=== PATIENT | female | born 1970 | race Caucasian/White ===

== ENCOUNTER 2019-11-30 16:38 | Inpatient (IN) | payer MEDICAID ==
[~2019-11-30] VITALS: Ht 160 cm; Wt 49.4 kg
[2019-11-30] MEDS ORDERED: IV NORMAL SALINE 1000 ML BAG IV ONE (17:00)
[2019-11-30] MEDS ORDERED: FAMOTIDINE. 20 MG/2 ML VIAL IV ONE ×2 (17:00→17:33)
--- NOTE | 2019-11-30 17:00 | NUR ---
PT IS IN ROOM #2A. DR BARRIOS EVALUATED THE PT.
[2019-11-30] MEDS ORDERED: HUM10VIA3 SQ (17:20)
[2019-11-30] MEDS ORDERED: LISI-603 PO (17:20)
[2019-11-30 17:37] LABS: BASOPHILS % (AUTO) 0.7 % (0.0-2.0); EOSINOPHILS % (AUTO) 0.7 % (0.0-7.0); HEMOGLOBIN 11.2 g/dL (10.9-14.3); LYMPHOCYTES # (AUTO) 1.9 K/uL (20.0-40.0); LYMPHOCYTES % (AUTO) 47.7 % (20.5-51.5); MEAN CORPUSCULAR HEMOGLOBIN 26.8 uug (24.7-32.8); MEAN CORPUSCULAR HGB CONC 31 g/dL (32.3-35.6); MEAN CORPUSCULAR VOLUME 86.5 fL (75.5-95.3); MONOCYTES # (AUTO) 0.4 K/uL (2.0-10.0); MONOCYTES % (AUTO) 9.5 % (0.0-11.0); NEUTROPHILS # (AUTO) 1.6 K/uL (1.8-8.9); NEUTROPHILS % (AUTO) 41.4 % (38.5-71.5); PLATELET COUNT (AUTO) 151 K/uL (179-408); RED BLOOD CELL COUNT(AUTO) 4.16 MIL/uL (3.63-4.92); WHITE BLOOD COUNT (AUTO) 3.9 K/uL (3.8-11.8)
[2019-11-30 17:58] LABS: BILIRUBIN,DIRECT 0.2 mg/dL (0.0-0.2); BILIRUBIN,TOTAL 0.5 mg/dL (0.2-1.0); CREATININE 0.7 mg/dL (0.6-1.3); POTASSIUM 3.4 mmol/L (3.5-5.1); TOTAL PROTEIN, SERUM 8.1 g/dL (6.4-8.2)
[2019-11-30] MEDS ORDERED: SWABABLE VALVE TRANSFER SET EA MC ONE (18:18)
[2019-11-30] MEDS ORDERED: IV NORMAL SALINE 250 ML IV ONE (18:18)
[2019-11-30] MEDS ORDERED: IOHEXOL 350 100 ML INFUS..BTL ONE (18:18)
[2019-11-30] MEDS ORDERED: ONDANSETRON 4 MG/2 ML VIAL ONE (18:35)
[2019-11-30] MEDS ORDERED: ONDANSETRON 4 MG/2 ML VIAL IV ONE (18:45)
--- NOTE | 2019-11-30 18:56 | NUR ---
REPORT WAS GIVEN TO [employer] CONSULTANT.
--- NOTE | 2019-11-30 19:27 | NUR ---
OK TO ADMIT TO TELE [facility] CALLED (KAYLA) CALL FOR BED DONE DX CHEST PAIN
--- NOTE | 2019-11-30 19:42 | NUR ---
WAITING CALL BACK FR CHARGE NURSE (SHERI)
--- NOTE | 2019-11-30 20:02 | NUR ---
BRIAN PENA ON THE PHONE WITH GAMA HERNANDEZ
--- NOTE | 2019-11-30 20:27 | NUR ---
HAND OFF AND SBAR GIVEN TO DOC ROSA OK TO ADMIT TO TELE RM 316 DX CHEST PAIN UNDER KERZUMA
--- NOTE | 2019-11-30 20:59 | NUR ---
TRANSPORTED TO ROOM VIA [facility] BY SEDA W/ BELONGINGS LIST SIGNED AND ACCOUNTED FOR
[2019-11-30 21:00] VITALS: BP 114/66
[2019-11-30] MEDS ORDERED: ZOLPIDEM 5 MG TABLET PO PRN (22:30)
[2019-11-30] MEDS ORDERED: ONDANSETRON 4 MG/2 ML VIAL IV PRN (22:30)
[2019-11-30] MEDS ORDERED: ACETAMINOPHEN 325 MG TABLET PO PRN (22:30)
[2019-11-30] MEDS ORDERED: MAGNESIUM HYDROXIDE 30 ML LIQUID UDC PO PRN (22:30)
[2019-11-30] MEDS ORDERED: HYDROCODONE/APAP 5-325MG TABLET PO PRN (22:30)
[2019-11-30] MEDS ORDERED: Z GUARD REMEDY PASTE 57 GM TUBE TOP PRN (22:30)
[2019-11-30] MEDS: LORAZEPAM 2 MG/1 ML VIAL IV PRN (23:00)
[2019-11-30] MEDS ORDERED: DEXTROSE 50% 50 ML DISP.SYRIN IV PRN (23:00)
[2019-11-30] MEDS: IV D5 1/2 NS 1000 ML 1,000 ML IV PRN (23:00)
--- NOTE | 2019-11-30 23:00 | NUR ---
Dr. gallegos contacted for patient DM-I diagnosis. orders received for patient to have mild sliding scale ACHS.
[2019-11-30] MEDS: BLOOD SUGAR DIAGNOSTIC 1 EACH STRIP VI SCH (23:11)
[2019-11-30] MEDS: INSULIN REGULAR, HUMAN 300 UNIT/3 ML VIAL SQ PRN (23:25)
[2019-12-01] VITALS: BP 125/78
[2019-12-01 05:00] VITALS: BP 138/88
--- NOTE | 2019-12-01 05:41 | NUR ---
patient received from ER. no signs of acute distress and v/s stable throughout shift. safety and comfort measures provided. bed in lowest position, side rails upx2, bed alarm on. all medications administered. Ativan x1 administered for alcohol withdrawal. Ambien administered for insomnia. will continue to monitor and endorse care accordingly.
[2019-12-01] MEDS: PANTOPRAZOLE SODIUM 40 MG TABLET.DR PO SCH (06:02)
[2019-12-01] MEDS: BLOOD SUGAR DIAGNOSTIC 1 EACH STRIP VI SCH ×4 (06:30→20:35)
[2019-12-01 06:33] LABS: BASOPHILS % (AUTO) 0.9 % (0.0-2.0); EOSINOPHILS # (AUTO) 0.1 K/uL (0.0-0.7); EOSINOPHILS % (AUTO) 1.7 % (0.0-7.0); HEMATOCRIT 35.6 % (31.2-41.9); HEMOGLOBIN 11.1 g/dL (10.9-14.3); LYMPHOCYTES # (AUTO) 1.2 K/uL (20.0-40.0); LYMPHOCYTES % (AUTO) 41.4 % (20.5-51.5); MEAN CORPUSCULAR HEMOGLOBIN 26.6 uug (24.7-32.8); MEAN CORPUSCULAR HGB CONC 31 g/dL (32.3-35.6); MEAN CORPUSCULAR VOLUME 84.9 fL (75.5-95.3); MONOCYTES # (AUTO) 0.6 K/uL (2.0-10.0); MONOCYTES % (AUTO) 18.7 % (0.0-11.0); NEUTROPHILS # (AUTO) 1.1 K/uL (1.8-8.9); NEUTROPHILS % (AUTO) 37.3 % (38.5-71.5); PLATELET COUNT (AUTO) 122 K/uL (179-408); RED BLOOD CELL COUNT(AUTO) 4.19 MIL/uL (3.63-4.92)
[2019-12-01 06:45] LABS: THYROID STIMULATING HORMONE 2.288 mIU/mL (0.358-3.740)
[2019-12-01 06:55] LABS: CREATININE 0.6 mg/dL (0.6-1.3); MAGNESIUM 1.3 mg/dL (1.8-2.4); PHOSPHOROUS 3.2 mg/dL (2.5-4.9); POTASSIUM 3.9 mmol/L (3.5-5.1)
[2019-12-01 06:59] LABS: LYMPHOCYTES % (MANUAL) 42 % (20-40); NEUTROPHILS % (MANUAL) 39 % (42-75)
[2019-12-01 07:00] LABS: EOSINOPHILS % (MANUAL) 2 % (0-8); MONOCYTES % (MANUAL) 17 % (2-10)
--- NOTE | 2019-12-01 08:00 | NUR ---
Received Pt resting in bed. no signs of acute distress or sob noted. safety and comfort measures provided. bed in lowest position, side rails upx2, bed alarm on. Ativan x1 administered for alcohol withdrawal. Pt on telemetry monitoring with sinus rhythm. will continue to monitor pt for safety and comfort.
[2019-12-01] MEDS: LORAZEPAM 2 MG/1 ML VIAL IV PRN ×3 (08:25→23:43)
[2019-12-01] MEDS: INSULIN REGULAR, HUMAN 300 UNIT/3 ML VIAL SQ PRN ×2 (08:30→17:06)
[2019-12-01] MEDS: CHLORDIAZEPOXIDE HCL 25 MG CAPSULE PO SCH ×2 (10:04→17:11)
[2019-12-01] MEDS: FOLIC ACID/VITAMIN B COMP W-C TABLET PO SCH (10:05)
--- NOTE | 2019-12-01 11:32 | NUR ---
SS consultation requested: SW met with this patient today. Patient is 49 year old female. Patient is awake, alert, oriented, receptive to meeting with this SW. Patient was in bed, and had her eyes closed throughout most of the interview. Patient apologized for having her eyes closed, stating "I'm just very tired", however her speech, tone of voice, and responses were all appropriate. Patient stated she was walking to the store yesterday when she started having chest pain and "I was just not feeling well". Patient was then brought in to the ED by paramedics. Patient states she lives with a roommate, Charley, in [place]. Patient's mother Lacy lives in [place] [phone] and patient stated that she has informed her mother of her hospitalization. Patient has a boyfriend, eJan Pierre [phone], who is also aware of patient's hospitalization. Patient reported hx of alcohol use for the past 7 years. Patient reports drinking 1 liter of vodka/day, last use was yesterday morning. Patient denied being in any substance abuse treatment programs in the past, however was receptive to resources on substance abuse treatment programs. Patient denied any hx of drug use. Patient reported hx of suicidal thoughts, but denied hx of attempts or any specific plans. Patient denied current SI. SW offered resources on counseling services, and patient expressed agreement. Per patient's request, information on advance directives were discussed. SW provided patient with informational material on advance directives, and also provided patient with a blank advance directive that she can complete. SW also provided patient with the following resources: Alcohol and Drug Treatment Programs: [facility] Substance Abuse Self-helpline ; [facility] ; [facility] ; [facility] ; [facility] ; [facility] [phone]; [facility] [phone]. Outpatient counseling services: [facility] [phone]; [facility] [phone]; [facility] [phone]; [facility] [phone]; [facility] [phone]; [facility] [phone]; [facility] [phone]. MICHELLE spoke with AZEEM Freitas and informed her of all above SS interventions. No further SS interventions needed at this time, however SW will be available to the patient, if necessary.
[2019-12-01 11:48] VITALS: BP 115/84
[2019-12-01] MEDS: MAGNESIUM SULFATE/D5W 100 ML IV SCH ×4 (14:55→18:32)
[2019-12-01 15:33] VITALS: BP 134/90
[2019-12-01] MEDS: IV D5 1/2 NS 1000 ML 1,000 ML IV PRN (17:14)
--- NOTE | 2019-12-01 17:58 | NUR ---
PT RESTING COMFORTABLY IN BED. NO ACUTE DISTRESS OR SOB NOTED. PT DENIES PAIN AT THIS TIME. BED LOCKED AND IN LOW POSITION. PT IS DIET AND MEDICATION COMPLIANT. PLEASANT AND COOPERATIVE. IVF AND MEDS GIVEN. PT ON TELEMETRY MONITORING SHOWING SINUS RHYTHM. SOCIAL SERVICE HAD CONSULT WITH PATIENT. WILL GIVE REPORT ACCORDINGLY.
[2019-12-01 20:02] VITALS: BP 146/105
--- NOTE | 2019-12-01 20:11 | NUR ---
Dr. Britton contacted for patient BP medication taken daily at home. orders received for Lisinopril 20 mg PO daily and administered one now. will place order and administer.
[2019-12-01] MEDS: LISINOPRIL 20 MG TABLET PO SCH (20:34)
[2019-12-02 00:07] VITALS: BP 128/87
[2019-12-02 04:00] VITALS: BP 126/93
[2019-12-02] MEDS: IV D5 1/2 NS 1000 ML 1,000 ML IV PRN (04:35)
--- NOTE | 2019-12-02 05:28 | NUR ---
patient received lying in bed. no signs of acute distress and v/s stable at all times. safety and comfort measures provided at all times. all medications administered and needs met. ativan administered x1 for c/o of pain. BS stable. no insulin administered during the night. low grade fever noted throughout shift. will continue to monitor and endorse accordingly.
[2019-12-02] MEDS: PANTOPRAZOLE SODIUM 40 MG TABLET.DR PO SCH ×2 (06:07→06:20)
--- NOTE | 2019-12-02 06:20 | NUR ---
patient refused her protonix this morning despite education. wasted. will continue to monitor.
[2019-12-02 06:30] LABS: BASOPHILS % (AUTO) 0.9 % (0.0-2.0); EOSINOPHILS # (AUTO) 0.1 K/uL (0.0-0.7); EOSINOPHILS % (AUTO) 2.8 % (0.0-7.0); HEMATOCRIT 37.4 % (31.2-41.9); HEMOGLOBIN 11.9 g/dL (10.9-14.3); LYMPHOCYTES % (AUTO) 26.9 % (20.5-51.5); MEAN CORPUSCULAR HEMOGLOBIN 27.3 uug (24.7-32.8); MEAN CORPUSCULAR HGB CONC 32 g/dL (32.3-35.6); MEAN CORPUSCULAR VOLUME 85.8 fL (75.5-95.3); MONOCYTES # (AUTO) 0.6 K/uL (2.0-10.0); NEUTROPHILS % (AUTO) 53.4 % (38.5-71.5); PLATELET COUNT (AUTO) 123 K/uL (179-408); RED BLOOD CELL COUNT(AUTO) 4.36 MIL/uL (3.63-4.92); WHITE BLOOD COUNT (AUTO) 3.7 K/uL (3.8-11.8)
[2019-12-02 06:52] LABS: BILIRUBIN,DIRECT 0.2 mg/dL (0.0-0.2); BILIRUBIN,TOTAL 0.6 mg/dL (0.2-1.0); CREATININE 0.6 mg/dL (0.6-1.3); MAGNESIUM 1.7 mg/dL (1.8-2.4); PHOSPHOROUS 2.5 mg/dL (2.5-4.9); POTASSIUM 4.1 mmol/L (3.5-5.1)
[2019-12-02] MEDS: BLOOD SUGAR DIAGNOSTIC 1 EACH STRIP VI SCH ×3 (06:54→16:19)
[2019-12-02 07:19] LABS: EOSINOPHILS % (MANUAL) 3 % (0-8); LYMPHOCYTES % (MANUAL) 26 % (20-40); MONOCYTES % (MANUAL) 15 % (2-10); NEUTROPHILS % (MANUAL) 56 % (42-75)
--- NOTE | 2019-12-02 08:00 | NUR ---
Received Pt resting in bed. no signs of acute distress or sob noted. safety and comfort measures provided. bed in lowest position, side rails upx2, bed alarm on. Pt on telemetry monitoring with sinus rhythm. will continue to monitor pt for safety and comfort.
[2019-12-02] MEDS: FOLIC ACID/VITAMIN B COMP W-C TABLET PO SCH (08:16)
[2019-12-02] MEDS: CHLORDIAZEPOXIDE HCL 25 MG CAPSULE PO SCH ×2 (08:16→16:14)
[2019-12-02] MEDS: INSULIN REGULAR, HUMAN 300 UNIT/3 ML VIAL SQ PRN ×3 (08:17→16:22)
[2019-12-02] MEDS: LISINOPRIL 20 MG TABLET PO SCH (08:17)
[2019-12-02] MEDS ORDERED: THIAMINE HCL 100 MG TABLET PO SCH (09:00)
[2019-12-02 11:30] VITALS: BP 121/86
[2019-12-02] MEDS: MAGNESIUM SULFATE/D5W 100 ML IV SCH ×2 (13:32→14:49)
[2019-12-02] MEDS: LORAZEPAM 2 MG/1 ML VIAL IV PRN (13:32)
[2019-12-02] MEDS ORDERED: THIA100T13 PO (13:57)
[2019-12-02] MEDS ORDERED: FOLI0.4T2 PO (13:57)
[2019-12-02] MEDS ORDERED: CHLO25CA22 PO (13:57)
[2019-12-02 16:00] VITALS: BP 105/65
--- NOTE | 2019-12-02 18:14 | NUR ---
PT HAS BEEN DISCHARGED. NO ACUTE DISTRESS OR SOB NOTED. SR. DIRECTOR AND DISCHARGE PLANING SPOKE WITH PATIENT AND PROVIDED GUIDANCE AND RESOURCES. BELONGINGS LIST SIGNED. TELEMETRY BOX REMOVED. IV REMOVED INTACT. BELONGINGS RETURNED. DISCHARGE INSTRUCTIONS GIVEN TO PATIENT WITH GOOD UNDERSTANDING. PRESCRIPTIONS SENT ELECTRONICALLY BY SKYLER ORELLANA TO [facility]. RN CALLED [facility] TO CONFIRM PRESCRIPTION FILL. PT ESCORTED TO MAIN LOBBY BY STAFF.
== END 2019-12-02 18:10 | disposition home or self-care (01) | DRG 775 ==
LOC: ER 16:40 → TELE3 20:27
PROVIDERS: ADMIT Student in an Organized Health Care Education/Training Program; ATTEND Student in an Organized Health Care Education/Training Program
DX: F10.239 Alcohol dependence with withdrawal, unspecified (principal); F10.229 Alcohol dependence with intoxication, unspecified; E10.649 Type 1 diabetes mellitus with hypoglycemia without coma; D69.6 Thrombocytopenia, unspecified; E44.0 Moderate protein-calorie malnutrition; E83.42 Hypomagnesemia; M94.0 Chondrocostal junction syndrome [Tietze]; I25.10 Atherosclerotic heart disease of native coronary artery without angina pectoris; I11.9 Hypertensive heart disease without heart failure; Y90.8 Blood alcohol level of 240 mg/100 ml or more; E87.6 Hypokalemia; F17.210 Nicotine dependence, cigarettes, uncomplicated; E51.9 Thiamine deficiency, unspecified; R74.0 Nonspecific elevation of levels of transaminase and lactic acid dehydrogenase [LDH]; Z68.1 Body mass index [BMI] 19.9 or less, adult; Z82.49 Family history of ischemic heart disease and other diseases of the circulatory system; Z90.49 Acquired absence of other specified parts of digestive tract; Z79.4 Long term (current) use of insulin
CPT/HCPCS: 36415; 70030-TC; 71045; 71275; 83690; 83735; 84100; 84443; 85025; 93005; 93307; A4663; G0378; G0480; J1815; J2060; J2405; J3475; J3490; J7030; J7050; Q9967